=== PATIENT | female | born 1990 | race Caucasian/White ===

== ENCOUNTER 2020-07-27 11:15 | Outpatient (CLI) | payer OTHER, SELFPAY | END 2020-07-27 11:16 | disposition home or self-care (01) | LOC: ANHCOVIDVC 11:15 | PROVIDERS: PCP Family Medicine | DX: Z23 Encounter for immunization (principal) | CPT/HCPCS: 0001A; 91300 ==

== ENCOUNTER 2020-08-17 11:16 | Outpatient (CLI) | payer OTHER, SELFPAY | END 2020-08-17 11:17 | disposition home or self-care (01) | LOC: ANHCOVIDVC 11:16 | PROVIDERS: PCP Family Medicine | DX: Z23 Encounter for immunization (principal) | CPT/HCPCS: 0002A; 91300 ==

== ENCOUNTER 2020-12-16 17:32 | Emergency (ER) | payer OTHER, SELFPAY ==
--- NOTE | ~2020-12-16 | XR_ITS ---
EXAMINATION: XR femur RT min 2V DATE: 12/16/2020 17:53 INDICATION: Right thigh foreign body. TECHNIQUE: 2 views of right femur were obtained. COMPARISON: None. FINDINGS: Bone alignment is normal. No fracture. There is a 3 mm subcutaneous radiopaque foreign body in the lateral right thigh. IMPRESSION: 1. 3 mm subcutaneous radiopaque foreign body in lateral right thigh. Reviewed, dictated and finalized at location A.
[2020-12-16 17:39] VITALS: BP 121/80; PULSE 83; RESP 16; TEMP 36.6; O2SAT 100
[2020-12-16 17:40] VITALS: BP 121/80; PULSE 83; RESP 16; TEMP 36.6; O2SAT 100
--- NOTE | 2020-12-16 17:48 | ED.SKABFB ---
HPI - Skin/Abscess/Foreign Bdy General Chief complaint: Skin/Abscess/Foreign Body Stated complaint: SPLINTER IN R THIGH Time Seen by Provider: 12/16/20 17:45 Source: patient, RN notes reviewed and old records reviewed Mode of arrival: ambulatory Limitations: no limitations History of Present Illness HPI narrative: 30-year-old female who presents to [facility] with complaints of possible foreign body in right upper lateral thigh. Patient reports she was mowing and something flew up and she felt a sharp pinch in her upper right thigh on Saturday. Patient has noted small puncture area to her right upper lateral thigh with surrounding redness, no drainage noted. Patient reports mild tenderness to area on palpation. She denies any known fevers, chills or sweat or any other ill symptoms.Tetanus is up to date. MD complaint: foreign body (thinks piece of metal in thigh) Related Data Home Medications Medication Instructions Recorded Confirmed cetirizine 10 mg tablet 10 mg PO DAILY PRN 07/05/20 levonorgestrel 20 mcg/24 hours (6 1 device INTRAUTERINE ONCE 07/05/20 yrs) 52 mg intrauterine device Allergies Allergy/AdvReac Type Severity Reaction Status Date / Time Penicillins Allergy Mild Pt gets Verified 07/05/20 08:19 yeast infections Review of Systems Review of Systems: CONSTITUTIONAL: Denies fever, chills, or sweats. EYES: Denies visual changes, redness, or discharge. ENT: Denies rhinorrhea, congestion, sore throat, or otalgia. CARDIOVASCULAR: Denies chest pain, palpitations, or edema. RESPIRATORY: Denies cough or dyspnea. GASTROINTESTINAL: Denies abdominal pain, nausea, vomiting, or diarrhea. GENITOURINARY: Denies dysuria or hematuria. SKIN: Denies rash or itching.has small wound to lateral upper thigh where foreign body thought to enter skin with some surrounding redness, no drainage noted MUSCULOSKELETAL: Denies back pain, joint pain, or myalgia. NEUROLOGIC: Denies headache, numbness, or weakness. PSYCHIATRIC: Denies anxiety or depression. All systems reviewed & are unremarkable except as noted in HPI and below PMFSH Past Medical History Medical History IUD (intrauterine device) in place Surgical History Surgical History (Updated 12/16/20 @ 17:53 by Rukhsana Arrieta NP) Hx of section x2 Hx of LASIK Hx of tonsillectomy S/P wisdom tooth extraction Family History Family History Mother Family history of multiple sclerosis Grandparent Carcinoma of colon, Onset Age: 85 Family history of Alzheimer's disease Family history of type 2 diabetes mellitus Family history of congestive heart failure Father Carcinoma of colon, Onset Age: 60 Social History Social History Social History: Smoking status: Never smoker Second hand tobacco smoke exposure: No Alcohol intake: current Drinks per week: 2 Substance use: never Substance use type: does not use Gender identity (if verbalized by the patient): Female Comments At time of signature, agree with nursing past medical, surgical, social and family history. There is no relevant family history pertinent to the presenting complaint Exam Narrative: GENERAL: Well-appearing, well-nourished, and in no acute distress. HEAD: Normocephalic, atraumatic. EYES: PERRLA and EOMI. ENT: Nares clear, no rhinorrhea or epistaxis. Mucous membranes moist. NECK: Supple. no lymphadenopathy CHEST: Clear to auscultation. No respiratory distress.SAO2 100% on room air HEART: Regular rate and rhythm. No murmur heard. Normal peripheral pulses. ABDOMEN: Soft, nontender, nondistended, normal active bowel sounds. EXTREMITIES: Normal range of motion. No edema. SKIN: Warm, dry, small puncture area noted to right upper lateral thigh with no drainage, positive for 1cm of surrounding redness with no induration of skin or acute warmth. NEURO:
== END 2020-12-16 18:24 | disposition home or self-care (01) ==
PROVIDERS: Emergency Provider Registered Nurse; PCP Family Medicine
DX: S70.351A Superficial foreign body, right thigh, initial encounter (principal); W45.8XXA Other foreign body or object entering through skin, initial encounter
CPT/HCPCS: 10120; 73552; 99213; G0463

== ENCOUNTER 2021-11-03 00:35 | Day surgery (SDC) | payer OTHER, SELFPAY ==
[2021-10-17 14:40] VITALS: BMI 23.4
--- NOTE | 2021-11-02 12:37 | WPDANESEPPF ---
Anes - Initial Pre Proc Eval Procedure: Operation Date: 11/03/21 09:00 Proposed Procedures p Esophagogastroduodenoscopy - Lencho Aragon MD Date/Time: 11/02/21 12:37 Surgeon: Lencho Aragon MD Pre Op Diagnosis: gerd Patient Data Age: 31 Gender: F Height: 1.63 m Weight: 62 kg Allergies Allergy/AdvReac Type Severity Reaction Status Date / Time Penicillins Allergy Mild Pt gets Verified 11/03/21 08:10 yeast infections Home Medications Medication Instructions Recorded Confirmed Type cetirizine 10 mg tablet (Zyrtec) 10 mg PO DAILY PRN Allergic 07/05/20 11/03/21 History Symptoms levonorgestrel 20 mcg/24 hours (7 1 device intrauterine ONCE 07/05/20 11/03/21 History yrs) 52 mg intrauterine device (Mirena) buspirone 5 mg tablet 5 mg PO BID #60 tabs 07/04/21 11/03/21 Rx Patient hx anesthesia problems: none Family hx anesthesia problems: none Results Review: All pre-operative results and documents have been reviewed as part of the pre-operative evaluation. [facility] Past Medical History Medical History Abnormal Pap smear of cervix 12/31/11 ascus (neg hpv) all previous paps wnl Anemia affecting Chemical (~11/2013) Encounter for IUD insertion 11/09/19 Mirena insertin MAGED (generalized anxiety disorder) GERD (gastroesophageal reflux disease) IUD (intrauterine device) in place Surgical History Surgical History History of wisdom tooth extraction (~2004) Hx of section 12/03/14 primary c/s--failure to dilate 04/09/18 rpt c/s Hx of LASIK Hx of tonsillectomy (~1991) S/P wisdom tooth extraction Family History Family History Mother Family history of multiple sclerosis Grandparent Carcinoma of colon, Onset Age: 85 maternal grandmother Family history of Alzheimer's disease Family history of type 2 diabetes mellitus paternal grandfather Family history of congestive heart failure Heart disease paternal grandfather paternal grandmother Father Carcinoma of colon, Onset Age: 60 Heart disease Social History Social History (Updated 10/30/21 @ 08:25 by Lauryn Ramirez [facility]) Social History: Smoking status: Never smoker Second hand tobacco smoke exposure: No Alcohol intake: current Alcohol use details: socially Substance use: never Substance use type: does not use Living arrangements: with family Additional living arrangements comments: Additional occupation/education comments: marketing Gender identity (if verbalized by the patient): Female Sexual Orientation (if Verbalized by the Patient): Straight or Heterosexual Spiritual care concerns: No Anes - Eval Final PreProcedure Day of Procedure 11/02/21 12:37 Patient weight: normal Heart: regular rate and rhythm Lungs: clear to auscultation Airway: Mallampati scale class II Neurological: alert and oriented Last oral intake: >/= 8 hours ASA classification: II Emergent: no Anesthetic plan: proceed Anesthesia type and monitoring: general GIVS and standard monitoring Results Review: All pre-operative results and documents have been reviewed as part of the pre-operative evaluation. Informed Consent: The patient's anesthetic plan and its attendant risks and benefits were discussed with the patient/family/POA. Questions were solicited and answers provided to the satisfaction of the patient/family/POA.
[2021-11-03 08:12] VITALS: BP 110/77; PULSE 84; RESP 18; TEMP 37.2; BMI 23.6
[2021-11-03] MEDS: LACTATED RINGERS 1,000 ML 150 ML IV CONT (08:22)
--- NOTE | 2021-11-03 08:23 | SUR.PREOP ---
Urine test is negative.
--- NOTE | 2021-11-03 08:38 | PM.HPGS ---
History of Present Illness History of Present Illness Consent: Risks, benefits, and alternatives have been discussed and questions answered. Patient agrees to proceed with procedure. Chief complaint: gerd Narrative: Shanon Hall is a 31 year old female with gerd, tried omeprazole and nexium without much relief. Feeling better since using buspar. Never had egd Review of Systems Constitutional: Constitutional: Denies headache(s) and Denies weakness Eyes: Eyes: Denies blurry vision ENT: Reports Normal hearing present, Denies headache(s) and Denies neck pain Cardiovascular: Cardiovascular: Denies chest pain and Denies dyspnea Respiratory: Respiratory: Denies dyspnea Gastrointestinal: Gastrointestinal: Reports no additional gastrointestinal complaints Genitourinary: Genitourinary: Denies dysuria Musculoskeletal: Musculoskeletal: Denies neck pain Integumentary/Breasts: Skin/Breast: Denies dry skin Neurologic: Reports Normal hearing present, Denies headache(s) and Denies weakness Psychiatric: Psychiatric: Denies anxiety Endocrine: Endocrine: Denies change in body appearance Hematologic/Lymphatic: Hematologic/Lymphatic: Denies easy bleeding Allergic/Immunologic: Allergic/Immunologic: Denies urticaria PMFSH Past Medical History Medical History Abnormal Pap smear of cervix 12/31/11 ascus (neg hpv) all previous paps wnl Anemia affecting Chemical (~11/2013) Encounter for IUD insertion 11/09/19 Mirena insertin MAGED (generalized anxiety disorder) GERD (gastroesophageal reflux disease) IUD (intrauterine device) in place Surgical History Surgical History History of wisdom tooth extraction (~2004) Hx of section 12/03/14 primary c/s--failure to dilate 04/09/18 rpt c/s Hx of LASIK Hx of tonsillectomy (~1991) S/P wisdom tooth extraction Family History Family History Mother Family history of multiple sclerosis Grandparent Carcinoma of colon, Onset Age: 85 maternal grandmother Family history of Alzheimer's disease Family history of type 2 diabetes mellitus paternal grandfather Family history of congestive heart failure Heart disease paternal grandfather paternal grandmother Father Carcinoma of colon, Onset Age: 60 Heart disease Social History Social History (Updated 10/30/21 @ 08:25 by Lauryn Ramirez [facility]) Social History: Smoking status: Never smoker Second hand tobacco smoke exposure: No Alcohol intake: current Alcohol use details: socially Substance use: never Substance use type: does not use Living arrangements: with family Additional living arrangements comments: Additional occupation/education comments: marketing Gender identity (if verbalized by the patient): Female Sexual Orientation (if Verbalized by the Patient): Straight or Heterosexual Spiritual care concerns: No Meds Home Medications and Allergies Home Medications Medication Instructions Recorded Confirmed Type cetirizine 10 mg tablet (Zyrtec) 10 mg PO DAILY PRN Allergic 07/05/20 11/03/21 History Symptoms levonorgestrel 20 mcg/24 hours (7 1 device intrauterine ONCE 07/05/20 11/03/21 History yrs) 52 mg intrauterine device (Mirena) buspirone 5 mg tablet 5 mg PO BID #60 tabs 07/04/21 11/03/21 Rx Allergies Allergy/AdvReac Type Severity Reaction Status Date / Time Penicillins Allergy Mild Pt gets Verified 11/03/21 08:10 yeast infections Vital Signs Vital Signs - 24 hr 11/03/21 08:12 Temperature 99 F Pulse Rate 84 Respiratory Rate 18 Blood Pressure 110/77 Exam Const: General: comfortable and no acute distress HENMT: General nose exam: Normal nares present Eyes: General: appearance normal, both eyes and all related structures Neck: Neck: no JVD Resp: Auscultat
[2021-11-03] MEDS: BENZOCAINE (*SP) 60 ML SPRAY CAN (HURRICAINE) 1 SPRAY MUCOUS MEM (08:43)
[2021-11-03 08:52] VITALS: BP 80/52; PULSE 85; RESP 22; O2SAT 99
[2021-11-03 09:02] VITALS: BP 77/59; PULSE 88; RESP 18; O2SAT 100
[2021-11-03 09:12] VITALS: BP 99/67; PULSE 84; RESP 17; O2SAT 100
== END 2021-11-03 09:24 | disposition home or self-care (01) ==
PROVIDERS: PCP Family Medicine; Visit Provider Internal Medicine Gastroenterology
PROC: 0DJ08ZZ Inspection of Upper Intestinal Tract, Via Natural or Artificial Opening Endoscopic (ICD-10-PCS; CPT 43235; principal; 2021-11-03 09:00)
DX: K21.9 Gastro-esophageal reflux disease without esophagitis (principal); F41.1 Generalized anxiety disorder
CPT/HCPCS: 43239; 88305; J2704; J7120

== ENCOUNTER 2025-04-12 02:00 | Day surgery (SDC) | payer OTHER, SELFPAY ==
[2025-03-23 15:10] VITALS: BMI 24.5
--- OUTSIDE RECORDS SUMMARY | 2025-04-12 02:03 | XMS_ITS | Clinical Summary ---
Author Organization [facility] [employer] Address [address] [place] [address] Care Team Providers Care Test Desk Trouble Locator Name Role Phone Selina Oliveros MD Primary Care Provider + Source Comments [facility] [employer] [facility],non-owned Affiliates and Associated Physician Practices is amultiple site organization consisting of ambulatory clinics and hospital sitesin [place], [place], [place] and [place]. This disclosure is being madepursuant to the Care Everywhere program and may not contain all information available regarding this patient. Last updated 18.[facility] [facility] Allergies No known active allergies Medications * Be aware that medications may not be up to date on this document. Alwaysverify current medications with the patient. 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 Gender Identity Not on file Sexual Orientation Not on file Last Filed Vital Signs Vital Sign Reading Time Taken Comments Blood Pressure 100/60 06/02/2016 10:25 AM E M ASSEMBLER Pulse 80 06/02/2016 10:25 AM E M ASSEMBLER Temperature 37.2 C (99 F) 06/02/2016 10:25 AM E M ASSEMBLER Respiratory Rate 20 06/02/2016 10:25 AM E M ASSEMBLER Oxygen Saturation - - Inhaled Oxygen Concentration - - Weight 53.5 kg (118 lb) 06/02/2016 10:25 AM E M ASSEMBLER Height - - Body Mass Index - - Plan of Treatment Health Maintenance Due Date Last Done Comments HIV SCREENING 2003 HEPATITIS C SCREENING 07/06/2006 DTAP/TDAP/TD VACCINES (1 - Tdap) 2007 HEPATITIS B VACCINE (1 of 3 - 19+ 3-dose series) 2007 PAP SMEAR 2009 HPV VACCINE (1 - 3-dose SCDM series) 2015 Cervical Cancer Screening 2018 PAP with HPV 2018 DEPRESSION SCREENING 05/13/2024 COVID-19 VACCINE (1 - 2024-2 6 season) 2025 INFLUENZA VACCINE (#1) 2025 ZOSTER VACCINE (1 of 2) 2038 HIB VACCINE Aged Out No longer eligi ble based on patient's age to complete this topic MENINGOCOCCAL (Group B) VACC INE SHARED DECISION-MAKING Aged Out No longer eligibl e based on patient's age to complete this topic MENINGOCOCCAL GROUPS A/C/Y/W VACCINE Aged Out No longer eligible b ased on patient's age to complete this topic PNEUMOCOCCAL VACCINE Aged Out No long er eligible based on patient's age to complete this topic Insurance [facility] Care Teams Test Desk Trouble Locator Relationship Specialty Start Date End Date Selina Oliveros MD [address] [place] [address] PCP - General 11/14/21
--- OUTSIDE RECORDS SUMMARY | 2025-04-12 02:03 | XMS_ITS | Clinical Summary ---
Author Organization [facility] Care Team Providers Care Mold Carrier Name Role Phone Selina Oliveros MD Primary Care Provider Allergies No known active allergies Medications busPIRone (BUSPAR) 5 mg tablet Take 1 tablet (5 mg total) by mouth 2 (two) times a day 4 Active norgestimate-et hinyl estradioL (ORTHO TRI-CYCLEN) 0.18/0.215/0.25 mg-35 mcg (28) per tablet Take 1 tablet by mouth daily Active spironolactone (ALDACTONE) 50 mg tablet Take 1 tablet (50 mg total) by mouth nightly 4 Active levonorgestreL (MIRENA) IUD 1 each by intrauterine route once Active Active Problems No known active problems Social History Tobacco Use Types Packs/Day Years Used Date Smoking Tobacco: Never Assessed Comments Unknown Sex and Gender Information Value Date Recorded Sex Assigned at Not on file Legal 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 Gender Identity Not on file Sexual Orientation Not on file Last Filed Vital Signs Vital Sign Reading Time Taken Comments Blood Pressure 124/74 10/26/2023 12:22 PM CDT Pulse 100 10/26/2023 12:22 PM CDT Temperature 36.8 C (98.2 F) 10/26/2023 12:22 PM CDT Respiratory Rate 20 10/26/2023 12:22 PM CDT Oxygen Saturation 100% 10/26/2023 12:22 PM CDT Inhaled Oxygen Concentration - - Weight 71.7 kg (158 lb) 10/26/2023 12:22 PM CDT Height 162.6 cm (5' 4) 10/26/2023 12:22 PM CDT Body Mass Index 27.12 10/26/2023 12:22 PM CDT Plan of Treatment Health Maintenance Due Date Last Done Comments Cervical Cancer Screening 1988 Depression Screening 1988 Hepatitis C Screening 1988 Varicella Vaccines (1 of 2 - 13+ 2-dose series) 2001 Hepatitis B Screening 2006 Regular Well Visit/Exam 18-64 2006 HPV Vaccines (1 - 3-dose SCDM series) 2015 Covid-19 Vaccine ( season) 2025 03/23/2022, 04/14/2021, 08/17/2020, Additional history exists Influenza Vaccine (#1) 2025 , 02/08/2022, 02/23/2021, Additional history exists DTaP/Tdap/Td Vaccine (3 - Td or Tdap) 02/17/2028 02/16/2018, 10/20/2014 Pneumococcal vaccine <65 Aged Out No longer eligible based on patient's age to complete this topic Insurance dr melo [address] [employer] Care Teams Mold Carrier Relationship Specialty Start Date End Date Selina Oliveros MD [address] [place] [address] PCP - General Family Medicine 10/26/23
[2025-04-12 10:09] VITALS: BP 121/75; PULSE 99; RESP 18; TEMP 36.1; O2SAT 100; BMI 24.5
[2025-04-12 10:13] LABS: BEDSIDEPREGUCG Negative (Negative)
[2025-04-12] MEDS: LACTATED RINGERS 1,000 ML 150 ML IV CONT (10:20)
--- NOTE | 2025-04-12 10:30 | WPDANESEPPF ---
Anes - Initial Pre Proc Eval Procedure: Operation Date: 04/12/25 11:30 Proposed Procedures p Diagnostic Colonoscopy - Lencho Aragon MD Date/Time: 04/12/25 10:30 Surgeon: Lencho Aragon MD Pre Op Diagnosis: Change in bowel habit,family hx colon ca Patient Data Age: 34 Gender: F Height: 1.63 m Weight: 65 kg Last Vital Signs Temp 36.1 C L 04/12/25 10:09 Pulse 99 04/12/25 10:09 Resp 18 04/12/25 10:09 BP 121/75 04/12/25 10:09 Pulse Ox 100 04/12/25 10:09 O2 Del Method Room Air 04/12/25 10:09 Allergies Allergy/AdvReac Type Severity Reaction Status Date / Time Penicillins Allergy Mild Pt gets Verified 04/12/25 10:08 yeast infections Home Medications ?Medication ?Instructions ?Recorded ?Confirmed ?Type cetirizine 10 mg tablet (Zyrtec) 10 mg PO DAILY PRN Allergic 07/05/20 04/12/25 History Symptoms levonorgestrel (Mirena) 1 device intrauterine ONCE 07/05/20 04/12/25 History spironolactone 50 mg tablet 50 mg PO DAILY 10/30/23 04/12/25 History buspirone 5 mg tablet 5 mg PO BID #180 tabs 02/08/25 04/12/25 Rx Laboratory Tests 04/12/25 10:09 POC Urine HCG, Qual Negative (Negative) Patient hx anesthesia problems: none Family hx anesthesia problems: none Results Review: All pre-operative results and documents have been reviewed as part of the pre-operative evaluation. [facility] Past Medical History Medical History Vasomotor rhinitis Nasopharyngitis acute Chemical (~11/2013) Encounter for IUD insertion 11/09/19 Mirena insertin Anemia affecting Abnormal Pap smear of cervix 12/31/11 ascus (neg hpv) all previous paps wnl GERD (gastroesophageal reflux disease) MAGED (generalized anxiety disorder) IUD (intrauterine device) in place Surgical History Surgical History History of wisdom tooth extraction (~2004) S/P wisdom tooth extraction Hx of LASIK Hx of section 12/03/14 primary c/s--failure to dilate 04/09/18 rpt c/s Hx of tonsillectomy (~1991) Family History Family History Mother Family history of multiple sclerosis Grandparent Carcinoma of colon, Onset Age: 85 maternal grandmother Family history of Alzheimer's disease Family history of type 2 diabetes mellitus paternal grandfather Family history of congestive heart failure Heart disease paternal grandfather paternal grandmother Father Carcinoma of colon, Onset Age: 60 Heart disease Social History Social History Social History: Smoking status: Never smoker Second hand tobacco smoke exposure: No Alcohol intake: current Drinks per week: 2 Alcohol use details: socially Substance use: never Substance use type: does not use Lack of Transportation: No Lack of Food: Never True Current Housing: I Have Housing Concerned About Future Housing: No Difficulty Paying Gas/Electric Bills: No Difficulty Paying for Meds: No Currently Unemployed: No Education: Bachelor's Degree Difficulty w/ Childcare or Family Care: No Living arrangements: with family Additional living arrangements comments: Occupation/Education: occupation Additional occupation/education comments: marketing Gender identity (if verbalized by the patient): Female Sexual Orientation (if Verbalized by the Patient): Straight or Heterosexual Spiritual care concerns: No Anes - Eval Final PreProcedure Day of Procedure 04/12/25 10:30 Patient weight: normal Heart: regular rate and rhythm Lungs: clear to auscultation and normal air movement Airway: Mallampati scale class II Neurological: alert and oriented Last oral intake: >/= 8 hours ASA classification: II Emergent: no Anesthetic plan: proceed Anesthesia type and monitoring: general GIVS and standard monitoring Results Review: All pre-operative results and documents have been reviewed as part of the pre-operative evaluation. Informed Consent: The patient's anesthetic plan and its attendant risks and benefits were discussed with the patient/family/POA. Questions were solicited and answers provided to the satisfaction of the patient/family/POA.
--- NOTE | 2025-04-12 11:00 | PM.HPGS ---
History of Present Illness History of Present Illness Consent: Risks, benefits, and alternatives have been discussed and questions answered. Patient agrees to proceed with procedure. Chief complaint: Change in bowel habit,family hx colon ca Narrative: Shanon Hall is a 34 year old female here for first colonoscopy, noted recent change of bowel habits, father had colon cancer Review of Systems Review of Systems: All systems reviewed & are unremarkable except as noted in HPI and below PMFSH Past Medical History Medical History (Updated 04/12/25 @ 11:01 by Lencho Aragon MD) Bowel habit changes Family history of colon cancer in father Vasomotor rhinitis Nasopharyngitis acute Chemical (~11/2013) Encounter for IUD insertion 11/09/19 Mirena insertin Anemia affecting Abnormal Pap smear of cervix 12/31/11 ascus (neg hpv) all previous paps wnl GERD (gastroesophageal reflux disease) MAGED (generalized anxiety disorder) IUD (intrauterine device) in place Surgical History Surgical History History of wisdom tooth extraction (~2004) S/P wisdom tooth extraction Hx of LASIK Hx of section 12/03/14 primary c/s--failure to dilate 04/09/18 rpt c/s Hx of tonsillectomy (~1991) Family History Family History Mother Family history of multiple sclerosis Grandparent Carcinoma of colon, Onset Age: 85 maternal grandmother Family history of Alzheimer's disease Family history of type 2 diabetes mellitus paternal grandfather Family history of congestive heart failure Heart disease paternal grandfather paternal grandmother Father Carcinoma of colon, Onset Age: 60 Heart disease Social History Social History Social History: Smoking status: Never smoker Second hand tobacco smoke exposure: No Alcohol intake: current Drinks per week: 2 Alcohol use details: socially Substance use: never Substance use type: does not use Lack of Transportation: No Lack of Food: Never True Current Housing: I Have Housing Concerned About Future Housing: No Difficulty Paying Gas/Electric Bills: No Difficulty Paying for Meds: No Currently Unemployed: No Education: Bachelor's Degree Difficulty w/ Childcare or Family Care: No Living arrangements: with family Additional living arrangements comments: Occupation/Education: occupation Additional occupation/education comments: marketing Gender identity (if verbalized by the patient): Female Sexual Orientation (if Verbalized by the Patient): Straight or Heterosexual Spiritual care concerns: No Meds Home Medications and Allergies Home Medications ?Medication ?Instructions ?Recorded ?Confirmed ?Type cetirizine 10 mg tablet (Zyrtec) 10 mg PO DAILY PRN Allergic 07/05/20 04/12/25 History Symptoms levonorgestrel (Mirena) 1 device intrauterine ONCE 07/05/20 04/12/25 History spironolactone 50 mg tablet 50 mg PO DAILY 10/30/23 04/12/25 History buspirone 5 mg tablet 5 mg PO BID #180 tabs 02/08/25 04/12/25 Rx Allergies Allergy/AdvReac Type Severity Reaction Status Date / Time Penicillins Allergy Mild Pt gets Verified 04/12/25 10:08 yeast infections Vital Signs Vital Signs - 24 hr 04/12/25 10:09 Temperature 97 F L Pulse Rate 99 Respiratory Rate 18 Blood Pressure 121/75 Pulse Oximetry 100 Oxygen Delivery Room Air Exam Const: General: comfortable and no acute distress HENMT: Face/Nose/Sinus: Normal nares present Eyes: General: appearance normal, both eyes and all related structures Neck: Neck: no JVD Resp: Auscultation: clear to auscultation bilaterally Cardio: Rate: regular rate Rhythm: regular rhythm GI: Inspection: non-distended GI Palp: Yes Soft to palpation Skin: General skin exam: normal color Extrem: General: normal to inspection Psych: Mental Status: mental status grossly normal Assessment and Plan Assessment and plan (1) Family history of colon cancer in father: Code(s): Z80.0 - Family history of malignant neoplasm of digestive organs Status: Acute Assessment and Plan: colonoscopy (2) Bowel habit changes: Code(s): R19.4 - Change in bowel habit Status: Acute
[2025-04-12 11:17] VITALS: BP 78/42; PULSE 86; RESP 18; O2SAT 97
[2025-04-12 11:27] VITALS: BP 97/53; PULSE 77; RESP 15; O2SAT 100
[2025-04-12 11:37] VITALS: BP 116/94; PULSE 88; RESP 18; O2SAT 100
== END 2025-04-12 11:46 | disposition home or self-care (01) ==
PROVIDERS: Anesthesiology; PCP Family Medicine; Referring Provider Student in an Organized Health Care Education/Training Program; Visit Provider Internal Medicine Gastroenterology
PROC: 0DJD8ZZ Inspection of Lower Intestinal Tract, Via Natural or Artificial Opening Endoscopic (ICD-10-PCS; CPT 45378; principal; 2025-04-12 11:30)
DX: R19.4 Change in bowel habit (principal); Z80.0 Family history of malignant neoplasm of digestive organs
CPT/HCPCS: 45378; J2003; J2704; J7120